=== PATIENT | female | born 1955 | race Caucasian/White ===

== ENCOUNTER 2020-09-22 22:31 | Inpatient (IN) | payer MEDICARE, OTHER ==
[~2020-09-22] VITALS: Ht 165.1 cm; Wt 95.7 kg
[~2020-09-22 22:31] MED LIST: ARIP5TAB10 PO; ASCO500T10 PO; ASPI-869 PO; ATOR10TA PO; BISA10SU61 RC; CARV3.12 PO; CLON0.1T PO; DIVA250T PO; LEVE500T9 PO; LEVO25TA2 PO; LORA-259 PO; MAGN400O6 PO; MULT-594 PO; NA P133E RC; ZINC50TA65 PO
[2020-09-22 22:42] VITALS: BP 114/62
[2020-09-22] MEDS ORDERED: MAGNESIUM HYDROXIDE 30 ML LIQUID UDC PO PRN (22:45)
[2020-09-22] MEDS ORDERED: MAG HYDROX/AL HYDROX/SIMETH 30 ML LIQUID UDC PO PRN (22:45)
[2020-09-22] MEDS ORDERED: BLOOD SUGAR DIAGNOSTIC 1 EACH STRIP VI ONE (22:45)
--- NOTE | 2020-09-23 01:58 | NUR ---
2149 PATIENT ARRIVED ON UNIT. PATIENT ALERT AND ORIENTED TO NAME ONLY. PATIENT DENIES PAIN. VITALS SIGNS STABLE. PATIENT EXTREMELY CONFUSED. PATIENT STATES "JORGE SHEPHERD IS THE PRESIDENT, [facility]. I HAVE A SON BORN IN 1974 SO HE IS NOW 21 YEARS OLD" PATIENT AMBULATORY WITH SOME UNSTEADINESS. PATIENT DENIES SI, HI, AT THIS TIME. PATIENT ADMITS TO "SEEING AND HEARING PEOPLE WHO ARE NOT THERE" PATIENT VERY WEEPY ON ARRIVAL STATING " I'M SO SCARED I WANT TO GO HOME. I DON'T KNOW WHERE I AM" 2399 PATIENT EASILY DIRECTED AND REFOCUSED. PATIENT IN BED AT THIS TIME SLEEPING. WILL CONTINUE TO MONITOR THROUGHOUT SHIFT.
--- NOTE | 2020-09-23 04:31 | NUR ---
PATIENT REFUSED BLOOD SUGAR CHECK. PATIENT UNABLE TO SIGN AND UNDERSTAND. PATIENT VERY CONFUSED. PATIENT IN BED SLEEPING MOST OF NIGHT. NO MEDICATIONS GIVEN AT THIS TIME. WILL CONTINUE TO MONITOR THROUGHOUT SHIFT.
[2020-09-23 07:30] VITALS: BP 115/47
--- NOTE | 2020-09-23 08:00 | NUR ---
Pt alert to name. PT states she wants to continue to sleep and refused breakfast. Reorientation to time and place implemented. Pt States that she hears voices. No sob noted.
--- NOTE | 2020-09-23 08:30 | NUR ---
Firearms Report: Advertising Campaign Manager completed and submitted a DOJ firearms report for 5150 grave disability certification. A copy of report has been placed in patient chart.
--- NOTE | 2020-09-23 09:34 | NUR ---
SW Initial Discharge: Patient currently resides at [facility] located at [address] [place] [address]; ([phone]). Patient does not have any family members at this time. This SW contacted [facility] ([phone]) and spoke with [facility] facility coordinator who stated patient is welcomed back upon discharge. SW will coordinate with patient, treatment team, and MD to coordinate proper discharge.
[2020-09-23] MEDS ORDERED: BISACODYL 10 MG SUPP.RECT RC PRN (10:45)
[2020-09-23] MEDS ORDERED: MAGNESIUM HYDROXIDE 30 ML LIQUID UDC PO PRN (10:45)
[2020-09-23] MEDS ORDERED: CLONIDINE HCL 0.1 MG TABLET PO PRN (10:45)
[2020-09-23] MEDS ORDERED: FLEET ENEMA 133 ML BOTTLE RC PRN (10:45)
[2020-09-23] MEDS: levETIRAcetam 500 MG TABLET PO SCH ×2 (12:32→16:10)
[2020-09-23] MEDS: ATORVASTATIN 10 MG TABLET PO SCH (12:34)
[2020-09-23 15:04] VITALS: BP 107/50
--- NOTE | 2020-09-23 16:04 | NUR ---
SW Contact: This SW received a phone call from patient's SW who is pt's payee ([phone]) who left a voicemail that she follows pt and would want to know her discharge plan.
[2020-09-23] MEDS: CARVEDILOL 3.125 MG TABLET PO SCH (16:10)
[2020-09-23] MEDS ORDERED: CARVEDILOL 3.125 MG TABLET PO SCH (17:00)
--- NOTE | 2020-09-23 18:30 | NUR ---
Pt pacing up and down hallway concerned of when shes going to be discharged. Pt more aware that she is at a mental health hospital. Pt cooperative on taking pills.
[2020-09-23 20:07] VITALS: BP 102/55
[2020-09-23] MEDS: ARIPIPRAZOLE 5 MG TABLET PO SCH (20:23)
[2020-09-23] MEDS: MIRTAZAPINE 15 MG TABLET PO SCH (20:24)
[2020-09-23] MEDS: CLONAZEPAM 0.5 MG TABLET PO PRN (23:06)
--- NOTE | 2020-09-24 06:16 | NUR ---
Patient slept approximately 6.30 hrs.Compliant with medication. Patient noted pacing back and forth the hallway,able to re-direct patient, calm .Denies SI/hI.No aggressive behavior.
[2020-09-24 07:30] VITALS: BP 128/57
[2020-09-24] MEDS: ZINC SULFATE 220 MG CAPSULE PO SCH (08:11)
[2020-09-24] MEDS: levETIRAcetam 500 MG TABLET PO SCH ×2 (08:11→16:10)
[2020-09-24] MEDS: ATORVASTATIN 10 MG TABLET PO SCH (08:12)
[2020-09-24] MEDS: CARVEDILOL 3.125 MG TABLET PO SCH ×2 (08:12→16:12)
[2020-09-24] MEDS: MULTIVITAMINS,THERAPEUTIC TABLET PO SCH (08:12)
[2020-09-24] MEDS: ASCORBIC ACID 500 MG TABLET PO SCH (08:12)
[2020-09-24] MEDS: ARIPIPRAZOLE 5 MG TABLET PO SCH ×2 (08:12→16:10)
[2020-09-24] MEDS: LEVOTHYROXINE SODIUM 25 MCG TABLET PO SCH (08:21)
[2020-09-24] MEDS: ASPIRIN EC 325 MG TABLET.DR PO SCH (08:24)
[2020-09-24] MEDS ORDERED: Medication Not On Formulary EA (Multivitamins (Multivitamin) 1 TAB) PO SCH (09:00)
[2020-09-24] MEDS ORDERED: Medication Not On Formulary EA (Zinc Amino Acid Chelate (Zinc) 50 MG) PO SCH (09:00)
--- NOTE | 2020-09-24 14:37 | NUR ---
patient is alert and oriented x3, compliant with all medication, patient is isolative no interaction with other peers.poor insight and poor judgements.will continue close monitoring.
[2020-09-24 16:03] VITALS: BP 114/56
[2020-09-24] MEDS: CLONAZEPAM 0.5 MG TABLET PO PRN ×2 (16:10→22:20)
[2020-09-24] MEDS: MIRTAZAPINE 15 MG TABLET PO SCH (20:00)
[2020-09-24 20:08] VITALS: BP 122/51
[2020-09-25] MEDS: LEVOTHYROXINE SODIUM 25 MCG TABLET PO SCH (06:11)
--- NOTE | 2020-09-25 06:14 | NUR ---
Slept a total of 6.15 hours. Denies an SOB or discomfort at this time. Pt is compliant with all medications ordered and tolerated all medications well. Paced intermittently down the renner throughout the night and was anxious stating, "They're going to hurt me." Patient was given Klonopin to help relax, tolerated well. Pt able to be redirected. Safety and comfort provided throughout shift. Denies SI or HI. No other issues or concerns at this time, will endorse to day shift.
[2020-09-25 07:30] VITALS: BP 124/46
[2020-09-25] MEDS: levETIRAcetam 500 MG TABLET PO SCH ×2 (08:54→16:20)
[2020-09-25] MEDS: ARIPIPRAZOLE 5 MG TABLET PO SCH ×2 (08:54→16:20)
[2020-09-25] MEDS: ASCORBIC ACID 500 MG TABLET PO SCH (08:54)
[2020-09-25] MEDS: CARVEDILOL 3.125 MG TABLET PO SCH ×2 (08:56→17:40)
[2020-09-25] MEDS: MULTIVITAMINS,THERAPEUTIC TABLET PO SCH (08:56)
[2020-09-25] MEDS: ASPIRIN EC 325 MG TABLET.DR PO SCH (08:56)
[2020-09-25] MEDS: ZINC SULFATE 220 MG CAPSULE PO SCH (08:56)
--- NOTE | 2020-09-25 09:50 | NUR ---
SW Individual Intervention: SW met with patient's today for brief individual counseling to address patient's presenting problem suicidal ideation. Patient presents with depressed mood and flat affect. Patient appears disorganized and confused and asking "why am I here". Patient unable to engage in a meaningful conversation. SW assessed patient's level of suicidality and patient denies suicidal ideation. SW will continue to remain available for patient for continued supportive counseling
[2020-09-25] MEDS: CLONAZEPAM 0.5 MG TABLET PO PRN (12:04)
[2020-09-25 16:00] VITALS: BP 109/56
[2020-09-25 19:55] VITALS: BP 122/45
[2020-09-25] MEDS: TEMAZEPAM 7.5 MG CAPSULE PO PRN (20:49)
[2020-09-25] MEDS: ATORVASTATIN 10 MG TABLET PO SCH (20:49)
[2020-09-25] MEDS: MIRTAZAPINE 15 MG TABLET PO SCH (20:49)
[2020-09-26] MEDS: LEVOTHYROXINE SODIUM 25 MCG TABLET PO SCH (06:07)
--- NOTE | 2020-09-26 06:55 | NUR ---
Patient refused lab works.
[2020-09-26 08:37] VITALS: BP 115/53
[2020-09-26] MEDS: ARIPIPRAZOLE 5 MG TABLET PO SCH ×2 (08:43→16:47)
[2020-09-26] MEDS: MULTIVITAMINS,THERAPEUTIC TABLET PO SCH (08:43)
[2020-09-26] MEDS: ASPIRIN EC 325 MG TABLET.DR PO SCH (08:43)
[2020-09-26] MEDS: ZINC SULFATE 220 MG CAPSULE PO SCH (08:43)
[2020-09-26] MEDS: METFORMIN HCL 500 MG TABLET PO SCH (08:43)
[2020-09-26] MEDS: levETIRAcetam 500 MG TABLET PO SCH ×2 (08:43→16:48)
[2020-09-26] MEDS: CARVEDILOL 3.125 MG TABLET PO SCH ×2 (08:43→16:53)
[2020-09-26] MEDS: ASCORBIC ACID 500 MG TABLET PO SCH (08:44)
[2020-09-26 17:03] VITALS: BP 129/71
--- NOTE | 2020-09-26 17:17 | NUR ---
Gps/Gold Prospector- Anxious, pacing back and forth the hallway, claimed she wants to leave this place, she does not belong here.. Irritability noted when being redirected. Claimed she needed her eye glasses as well as hearing aid.
[2020-09-26] MEDS: CLONAZEPAM 0.5 MG TABLET PO PRN (17:30)
[2020-09-26 20:07] VITALS: BP 118/71
[2020-09-26] MEDS: ATORVASTATIN 10 MG TABLET PO SCH (20:29)
[2020-09-26] MEDS: MIRTAZAPINE 15 MG TABLET PO SCH (20:30)
--- NOTE | 2020-09-27 05:12 | NUR ---
Pt slept well, no s/sx of distress. No complaints of pain during the shift. No change in LOC. Compliant with meds, cooperative with care. Safety precautions in place. Frequent rounds done to ensure safety.
[2020-09-27] MEDS: LEVOTHYROXINE SODIUM 25 MCG TABLET PO SCH (06:35)
[2020-09-27 07:51] VITALS: BP 106/52
[2020-09-27] MEDS: CARVEDILOL 3.125 MG TABLET PO SCH ×2 (08:00→17:15)
[2020-09-27] MEDS: ASCORBIC ACID 500 MG TABLET PO SCH (09:10)
[2020-09-27] MEDS: ZINC SULFATE 220 MG CAPSULE PO SCH (09:10)
[2020-09-27] MEDS: ARIPIPRAZOLE 5 MG TABLET PO SCH ×2 (09:10→16:43)
[2020-09-27] MEDS: MULTIVITAMINS,THERAPEUTIC TABLET PO SCH (09:10)
[2020-09-27] MEDS: METFORMIN HCL 500 MG TABLET PO SCH (09:10)
[2020-09-27] MEDS: ASPIRIN EC 325 MG TABLET.DR PO SCH (09:10)
[2020-09-27] MEDS: levETIRAcetam 500 MG TABLET PO SCH ×2 (09:11→16:43)
--- NOTE | 2020-09-27 13:38 | NUR ---
GPS: Nursing Notes: Severe Agitation: Patient near the nursing station, shouting profanities to the staff, threatening staff, overly disruptive by constantly shouting, redirected, but continue threatening staff, redirected to her room, but continue to be restless, verbal abusive, stating racial statements to staff, "FUCKEN UKRAINIAN..", "I DON'T BELONG HERE..I AM GOING TO KILL YOU..", setting limits, but unable to be redirected, throwing the bedside table at staff, when staff walk away to the nursing station, patient throw a bottle of water toward staff, Dr Hagen paged by charge nurse, continue to monitor for safety, continue with treatment plan.
--- NOTE | 2020-09-27 13:56 | NUR ---
GPS: Nursing Notes: Chemical Restraint: Patient continue with violent outburst without provocation, threatening staff, using profanities toward staff, verbal abusive with racial statements, "FUCKEN EGYPTIAN.. I AM GOING TO GET YOU.. I DON'T BELONG HERE..", "FUCKEN FAT ASSHOLE... I KILL YOU..", throw bottle of water at staff, throw bedside table toward staff, restless, behavior, setting limits, but unable to be redirected, overly disruptive by constantly shouting, Dr. Hagen called and ordered: Zyprexa 10mg IM STAT for severe agitation, R=18, medications IM given at this time, continue to monitor for safety, continue with treatment plan.
[2020-09-27] MEDS ORDERED: OLANZAPINE 10 MG VIAL IM ONE (14:00)
[2020-09-27 16:42] VITALS: BP 125/60
[2020-09-27 19:43] VITALS: BP 150/84
[2020-09-27] MEDS: MIRTAZAPINE 15 MG TABLET PO SCH (20:15)
[2020-09-27] MEDS: ATORVASTATIN 10 MG TABLET PO SCH (20:15)
[2020-09-28] MEDS: LEVOTHYROXINE SODIUM 25 MCG TABLET PO SCH (06:53)
[2020-09-28 07:30] VITALS: BP 115/46
[2020-09-28] MEDS: CARVEDILOL 3.125 MG TABLET PO SCH ×2 (08:00→17:10)
[2020-09-28] MEDS: ASPIRIN EC 325 MG TABLET.DR PO SCH (08:41)
[2020-09-28] MEDS: ZINC SULFATE 220 MG CAPSULE PO SCH (08:41)
[2020-09-28] MEDS: CLONAZEPAM 0.5 MG TABLET PO PRN ×2 (08:42→19:25)
[2020-09-28] MEDS: METFORMIN HCL 500 MG TABLET PO SCH (08:42)
[2020-09-28] MEDS: ARIPIPRAZOLE 5 MG TABLET PO SCH ×2 (08:42→13:02)
[2020-09-28] MEDS: levETIRAcetam 500 MG TABLET PO SCH ×2 (08:42→16:19)
[2020-09-28] MEDS: MULTIVITAMINS,THERAPEUTIC TABLET PO SCH (08:42)
[2020-09-28] MEDS: ASCORBIC ACID 500 MG TABLET PO SCH (08:42)
[2020-09-28 11:24] LABS: BASOPHILS % (AUTO) 0.7 % (0.0-2.0); EOSINOPHILS # (AUTO) 0.1 K/uL (0.0-0.7); EOSINOPHILS % (AUTO) 1.7 % (0.0-7.0); HEMATOCRIT 36.7 % (31.2-41.9); HEMOGLOBIN 12.4 g/dL (10.9-14.3); LYMPHOCYTES # (AUTO) 1.5 K/uL (20.0-40.0); LYMPHOCYTES % (AUTO) 25.2 % (20.5-51.5); MEAN CORPUSCULAR HEMOGLOBIN 32.1 uug (24.7-32.8); MEAN CORPUSCULAR HGB CONC 34 g/dL (32.3-35.6); MEAN CORPUSCULAR VOLUME 94.9 fL (75.5-95.3); MONOCYTES # (AUTO) 0.7 K/uL (2.0-10.0); MONOCYTES % (AUTO) 12.2 % (0.0-11.0); NEUTROPHILS # (AUTO) 3.7 K/uL (1.8-8.9); NEUTROPHILS % (AUTO) 60.2 % (38.5-71.5); PLATELET COUNT (AUTO) 105 K/uL (179-408); RED BLOOD CELL COUNT(AUTO) 3.87 MIL/uL (3.63-4.92); WHITE BLOOD COUNT (AUTO) 6.1 K/uL (3.8-11.8)
[2020-09-28 15:12] VITALS: BP 107/51
[2020-09-28] MEDS: ARIPIPRAZOLE 10 MG TABLET PO SCH (16:19)
[2020-09-28] MEDS ORDERED: OLANZAPINE 10 MG VIAL IM STA (19:50)
[2020-09-28 19:57] VITALS: BP 112/51
[2020-09-28] MEDS: ATORVASTATIN 10 MG TABLET PO SCH (20:15)
--- NOTE | 2020-09-28 21:45 | NUR ---
Chemical Restraint Note: Pt was noted to be anxious pacing up and down the hallways yelling, "why am I here?" Pt was escalating so she was offered prn Klonopin 0.5mg. Pt reluctantly took it with some prompting, but it had no effect. Pt continued to elevate despite redirection efforts attempted from staff. Pt was verbally abusive toward the Charge Nurse and physically postured toward her, threatening "Fuck you, I'll fuck you up!" This principal technical writer attempted to calm the Pt to no avail, as Pt tried to kick and strike at staff. Pt refused to go her her room and remained disruptive and aggressive. Dr Hagen notified of Pt's behavior and Zyprexa 10mg administered to (R) buttock with moderate effect. Pt was cooperative with the injection, hands on Pt only for the IM. Pt remained emotional and upset, but notably calmer until 45 minutes after the injection was given, then she calmed and went to bed. VS before injection were: 112/51, 59, 18, 98% RA. Pt refused VS during the hour after the injection, but allowed staff to take her VS at 2130: 118/56, 59, 18, 99% RA. Pt now observed lying down in bed with her eyes closed, breathing even and unlabored, will continue to monitor.
[2020-09-28 22:01] VITALS: BP 118/56
[2020-09-29] MEDS: LEVOTHYROXINE SODIUM 25 MCG TABLET PO SCH (06:50)
[2020-09-29 07:30] VITALS: BP 115/40
[2020-09-29] MEDS: CARVEDILOL 3.125 MG TABLET PO SCH ×2 (08:00→17:48)
[2020-09-29 08:06] LABS: BILIRUBIN,TOTAL 0.3 mg/dL (0.2-1.0); TOTAL PROTEIN, SERUM 6.3 g/dL (6.4-8.2)
[2020-09-29] MEDS: ASCORBIC ACID 500 MG TABLET PO SCH (08:30)
[2020-09-29] MEDS: ARIPIPRAZOLE 5 MG TABLET PO SCH ×2 (08:31→13:20)
[2020-09-29] MEDS: ASPIRIN EC 325 MG TABLET.DR PO SCH (08:31)
[2020-09-29] MEDS: levETIRAcetam 500 MG TABLET PO SCH ×2 (08:31→17:47)
[2020-09-29] MEDS: MULTIVITAMINS,THERAPEUTIC TABLET PO SCH (08:31)
[2020-09-29] MEDS: ZINC SULFATE 220 MG CAPSULE PO SCH (08:31)
[2020-09-29] MEDS: METFORMIN HCL 500 MG TABLET PO SCH (08:31)
--- NOTE | 2020-09-29 10:23 | NUR ---
Court Hearing: Patient's court hearing for 5250 was today and it was upheld for GD and danger to self.
--- NOTE | 2020-09-29 12:06 | NUR ---
SW Contact: This SW spoke with patient's SW who is pt's payee Sujey from behavioral Health ([phone]) and updated on patient's current status and discharge plan back to [facility] once patient is stable.
[2020-09-29] MEDS: CLONAZEPAM 0.5 MG TABLET PO PRN (13:19)
[2020-09-29 15:15] VITALS: BP 137/77
[2020-09-29] MEDS: ARIPIPRAZOLE 10 MG TABLET PO SCH (17:47)
[2020-09-29 20:06] VITALS: BP 111/69
[2020-09-29] MEDS: ATORVASTATIN 10 MG TABLET PO SCH (20:11)
[2020-09-30] MEDS: LEVOTHYROXINE SODIUM 25 MCG TABLET PO SCH (06:03)
[2020-09-30 07:30] VITALS: BP 104/50
[2020-09-30] MEDS: CARVEDILOL 3.125 MG TABLET PO SCH ×2 (08:00→17:05)
[2020-09-30] MEDS: MULTIVITAMINS,THERAPEUTIC TABLET PO SCH (08:33)
[2020-09-30] MEDS: ASPIRIN EC 325 MG TABLET.DR PO SCH (08:33)
[2020-09-30] MEDS: ZINC SULFATE 220 MG CAPSULE PO SCH (08:33)
[2020-09-30] MEDS: ARIPIPRAZOLE 5 MG TABLET PO SCH ×2 (08:33→12:26)
[2020-09-30] MEDS: ASCORBIC ACID 500 MG TABLET PO SCH (08:33)
[2020-09-30] MEDS: METFORMIN HCL 500 MG TABLET PO SCH (08:33)
[2020-09-30] MEDS: levETIRAcetam 500 MG TABLET PO SCH ×2 (08:33→17:04)
[2020-09-30] MEDS: CLONAZEPAM 0.5 MG TABLET PO PRN (12:26)
[2020-09-30 15:07] VITALS: BP 99/50
[2020-09-30] MEDS: ARIPIPRAZOLE 10 MG TABLET PO SCH (17:04)
[2020-09-30 20:00] VITALS: BP 126/77
[2020-09-30] MEDS: ATORVASTATIN 10 MG TABLET PO SCH (20:02)
[2020-09-30] MEDS: TEMAZEPAM 7.5 MG CAPSULE PO PRN (21:31)
[2020-10-01] MEDS: LEVOTHYROXINE SODIUM 25 MCG TABLET PO SCH (06:11)
[2020-10-01 07:23] LABS: BASOPHILS % (AUTO) 0.5 % (0.0-2.0); EOSINOPHILS # (AUTO) 0.1 K/uL (0.0-0.7); EOSINOPHILS % (AUTO) 1.9 % (0.0-7.0); HEMATOCRIT 42.4 % (31.2-41.9); HEMOGLOBIN 14.2 g/dL (10.9-14.3); LYMPHOCYTES # (AUTO) 3.1 K/uL (20.0-40.0); LYMPHOCYTES % (AUTO) 42.9 % (20.5-51.5); MEAN CORPUSCULAR HEMOGLOBIN 32.1 uug (24.7-32.8); MEAN CORPUSCULAR HGB CONC 34 g/dL (32.3-35.6); MEAN CORPUSCULAR VOLUME 95.7 fL (75.5-95.3); MONOCYTES # (AUTO) 0.6 K/uL (2.0-10.0); MONOCYTES % (AUTO) 8.9 % (0.0-11.0); NEUTROPHILS # (AUTO) 3.3 K/uL (1.8-8.9); NEUTROPHILS % (AUTO) 45.8 % (38.5-71.5); PLATELET COUNT (AUTO) 142 K/uL (179-408); RED BLOOD CELL COUNT(AUTO) 4.43 MIL/uL (3.63-4.92); WHITE BLOOD COUNT (AUTO) 7.1 K/uL (3.8-11.8)
[2020-10-01 07:30] VITALS: BP 102/60
[2020-10-01 07:37] LABS: BILIRUBIN,TOTAL 0.4 mg/dL (0.2-1.0); PHOSPHOROUS 4.2 mg/dL (2.5-4.9); POTASSIUM 4.3 mmol/L (3.5-5.1); TOTAL PROTEIN, SERUM 7.5 g/dL (6.4-8.2)
--- NOTE | 2020-10-01 08:00 | NUR ---
AWAKE ALERT DENIES SI DENIES HEARING VOICES COMPLIANT WITH MEDICATIONS AND CARE PATIENT ENCOURAGED TO GO TO THE ACTIVITY ROOM AND PARTICIPATE ABLE AND SHE EXPRESSED UNDERSTANDING.WILL CONTINUE TO PROVIDE SAFE AND THERAPEUTIC ENVIRONMENT AT ALL TIMES.
[2020-10-01] MEDS: ASCORBIC ACID 500 MG TABLET PO SCH (08:17)
[2020-10-01] MEDS: METFORMIN HCL 500 MG TABLET PO SCH (08:17)
[2020-10-01] MEDS: ASPIRIN EC 325 MG TABLET.DR PO SCH (08:17)
[2020-10-01] MEDS: levETIRAcetam 500 MG TABLET PO SCH ×2 (08:17→16:23)
[2020-10-01] MEDS: ZINC SULFATE 220 MG CAPSULE PO SCH (08:17)
[2020-10-01] MEDS: MULTIVITAMINS,THERAPEUTIC TABLET PO SCH (08:17)
[2020-10-01] MEDS: ARIPIPRAZOLE 5 MG TABLET PO SCH ×2 (08:17→12:16)
[2020-10-01 16:00] VITALS: BP 107/71
[2020-10-01] MEDS: ARIPIPRAZOLE 10 MG TABLET PO SCH (16:23)
--- NOTE | 2020-10-01 18:00 | NUR ---
WALKING UP AND DOWN IN THE HALLWAY ASKED HER IF SHE COULD SIT DOWN TO REST FOR A WHILE STATED NOT TIRED SHE HAS BEEN COMPLIANT WITH MEDICATIONS AND CARE PER REPORT PATIENT MIGHT BE DISCHARGE TOMORROW.
[2020-10-01] MEDS: ATORVASTATIN 10 MG TABLET PO SCH (20:04)
[2020-10-01 20:13] VITALS: BP 121/67
[2020-10-02] MEDS: LEVOTHYROXINE SODIUM 25 MCG TABLET PO SCH (06:01)
[2020-10-02 07:30] VITALS: BP 139/44
[2020-10-02] MEDS: ARIPIPRAZOLE 5 MG TABLET PO SCH ×2 (08:38→12:43)
[2020-10-02] MEDS: MULTIVITAMINS,THERAPEUTIC TABLET PO SCH (08:38)
[2020-10-02] MEDS: ASPIRIN EC 325 MG TABLET.DR PO SCH (08:38)
[2020-10-02] MEDS: levETIRAcetam 500 MG TABLET PO SCH ×2 (08:38→17:23)
[2020-10-02] MEDS: ZINC SULFATE 220 MG CAPSULE PO SCH (08:38)
[2020-10-02] MEDS: ASCORBIC ACID 500 MG TABLET PO SCH (08:38)
[2020-10-02] MEDS: METFORMIN HCL 500 MG TABLET PO SCH (08:38)
[2020-10-02 16:00] VITALS: BP 135/74
[2020-10-02] MEDS: ARIPIPRAZOLE 10 MG TABLET PO SCH (17:23)
[2020-10-02 20:06] VITALS: BP 127/63
[2020-10-02] MEDS ORDERED: ARIPIPRAZOLE 10 MG TABLET PO SCH (21:00)
[2020-10-02] MEDS: ATORVASTATIN 10 MG TABLET PO SCH (21:27)
--- NOTE | 2020-10-03 05:46 | NUR ---
GPS: Patient slept approximately 7.15 hrs.Compliant with medication. Patient resting on bed comfortably,able to re-direct patient, calm .Denies SI/hI.No aggressive behavior.
[2020-10-03] MEDS: LEVOTHYROXINE SODIUM 25 MCG TABLET PO SCH (06:08)
[2020-10-03 07:30] VITALS: BP 111/49
--- NOTE | 2020-10-03 07:58 | NUR ---
Discharge Note: Patient will be discharged to [facility] [address] [place] [address]; (P [phone]; F [phone]) via ambulance at 1PM. Spoke with [facility] print production coordinator who stated they are ready to accept the patient today. Patient does not have any family members to contact. Patient is aware and agreeable with discharge plans and presents with appropriate mood and congruent affect. Patient is alert and oriented x2, is unable to plan for self-care, however, is willing to received care provided for her at [facility]. Patient denies any suicidal or homicidal ideation. Patient will follow-up at the facility with (Psychiatrist) Dr. Trinidad and (Survey Rodman) Dr. Franks.
[2020-10-03] MEDS: MULTIVITAMINS,THERAPEUTIC TABLET PO SCH (08:47)
[2020-10-03] MEDS: ASCORBIC ACID 500 MG TABLET PO SCH (08:47)
[2020-10-03] MEDS: ZINC SULFATE 220 MG CAPSULE PO SCH (08:47)
[2020-10-03] MEDS: METFORMIN HCL 500 MG TABLET PO SCH (08:47)
[2020-10-03] MEDS: levETIRAcetam 500 MG TABLET PO SCH (08:47)
[2020-10-03] MEDS: ASPIRIN EC 325 MG TABLET.DR PO SCH (08:47)
[2020-10-03] MEDS ORDERED: ARIPIPRAZOLE 10 MG TABLET PO SCH (09:00)
--- NOTE | 2020-10-03 11:59 | NUR ---
Gps/Forest Management Professor- Called [facility]. Facility, , report was given to Nurse Travel Ot Bonita . Informed of nut picker time from the Hospital. patient was well informed.
--- NOTE | 2020-10-03 14:25 | NUR ---
Gps/Technical Lead- Discharged to [facility] via ambulance, all belongings given back to patient. In good spirit , no new complaints noted.
== END 2020-10-03 14:45 | DRG 885 ==
LOC: GPS 22:31
PROVIDERS: ADMIT Psychiatry & Neurology Psychiatry; ATTEND Internal Medicine
DX: F25.9 Schizoaffective disorder, unspecified (principal); N17.0 Acute kidney failure with tubular necrosis; N18.9 Chronic kidney disease, unspecified; D68.59 Other primary thrombophilia; E87.0 Hyperosmolality and hypernatremia; G40.909 Epilepsy, unspecified, not intractable, without status epilepticus; E03.9 Hypothyroidism, unspecified; E78.5 Hyperlipidemia, unspecified; G30.9 Alzheimer's disease, unspecified; F02.80 Dementia in other diseases classified elsewhere, unspecified severity, without behavioral disturbance, psychotic disturbance, mood disturbance, and anxiety; D69.6 Thrombocytopenia, unspecified; E66.01 Morbid (severe) obesity due to excess calories; F29 Unspecified psychosis not due to a substance or known physiological condition; Z68.35 Body mass index [BMI] 35.0-35.9, adult; Z20.822 Contact with and (suspected) exposure to COVID-19; F19.90 Other psychoactive substance use, unspecified, uncomplicated; Z74.09 Other reduced mobility; J44.9 Chronic obstructive pulmonary disease, unspecified; I25.2 Old myocardial infarction; E11.22 Type 2 diabetes mellitus with diabetic chronic kidney disease; I12.9 Hypertensive chronic kidney disease with stage 1 through stage 4 chronic kidney disease, or unspecified chronic kidney disease; Z88.2 Allergy status to sulfonamides
CPT/HCPCS: 36415; 71045; 83735; 84100; 85025; J2358

== ENCOUNTER 2021-03-14 14:44 | Inpatient (IN) | payer MEDICARE, OTHER ==
[~2021-03-14] VITALS: Ht 162.6 cm; Wt 77.1 kg
[~2021-03-14 14:44] MED LIST changes: -ARIP5TAB10 PO; -DIVA250T PO; -LORA-259 PO
[2021-03-14 15:22] LABS: HEMATOCRIT 35.3 % (31.2-41.9); MEAN CORPUSCULAR HEMOGLOBIN 31.5 uug (24.7-32.8); MEAN CORPUSCULAR VOLUME 95.8 fL (75.5-95.3); PLATELET COUNT (AUTO) 171 K/uL (179-408)
[2021-03-14 15:29] LABS: CARBON DIOXIDE 31 mmol/L (21-32); CHLORIDE 106 mmol/L (98-107); CREATININE 1.2 mg/dL (0.6-1.3); GLUCOSE 122 mg/dL (74-106); UREA NITROGEN, BLOOD 25 mg/dL (7-18)
[2021-03-14 15:37] LABS: ETHANOL < 3 MG/DL (0-0)
[2021-03-14 15:41] LABS: ALANINE AMINOTRANSFERASE 17 U/L (14-59); ALKALINE PHOSPHATASE 97 U/L (50-136); ASPARTATE AMINOTRANSFERASE 16 U/L (15-37); BILIRUBIN,DIRECT 0.1 mg/dL (0.0-0.2); BILIRUBIN,TOTAL 0.2 mg/dL (0.2-1.0); PHENYTOIN (DILANTIN) 6.6 ug/mL (10.0-20.0); TOTAL PROTEIN, SERUM 6.6 g/dL (6.4-8.2)
[2021-03-14 15:43] LABS: ACETAMINOPHEN < 2.0 ug/mL (10-30)
[2021-03-14] MEDS ORDERED: PHEN100C4 PO (16:02)
[2021-03-14] MEDS ORDERED: LAMO200T10 PO (16:02)
[2021-03-14] MEDS ORDERED: MAGN400O6 PO (16:02)
[2021-03-14] MEDS ORDERED: OLAN10TA73 PO (16:02)
[2021-03-14] MEDS ORDERED: DIVA-78 PO (16:02)
[2021-03-14] MEDS ORDERED: LEVO25TA9 PO (16:02)
[2021-03-14] MEDS ORDERED: METF-494 PO (16:02)
[2021-03-14] MEDS ORDERED: CLOT15CR27 TP (16:02)
[2021-03-14] MEDS ORDERED: HYDR2TAB4 PO (16:02)
[2021-03-14] MEDS ORDERED: TRAZ-257 PO (16:02)
[2021-03-14] MEDS ORDERED: DIPH25CA83 PO (16:02)
[2021-03-14] MEDS ORDERED: LISI-782 PO (16:02)
[2021-03-14] MEDS ORDERED: TOPI100T38 PO (16:02)
[2021-03-14] MEDS ORDERED: ATOR10TA PO (16:02)
[2021-03-14] MEDS ORDERED: IBUP-1955 PO (16:02)
--- NOTE | 2021-03-14 16:10 | NUR ---
Pt medically cleared, per provider. Spoke with Sarah, crisis team, will be coming in for evaluation.
--- NOTE | 2021-03-14 16:41 | NUR ---
Pt is sleeping in stable condition.
--- NOTE | 2021-03-14 17:52 | NUR ---
Report called into [facility], spoke to Esvin. Will transport pt via wheel chair to room 140A
[2021-03-14] MEDS ORDERED: MAGNESIUM HYDROXIDE 30 ML LIQUID UDC PO PRN ×2 (18:15→18:30)
[2021-03-14] MEDS ORDERED: MAG HYDROX/AL HYDROX/SIMETH 30 ML LIQUID UDC PO PRN (18:15)
[2021-03-14 18:27] LABS: VALPROIC ACID 44 ug/mL (50-100)
[2021-03-14] MEDS ORDERED: CLONIDINE HCL 0.1 MG TABLET PO PRN (18:30)
[2021-03-14] MEDS ORDERED: HYDROMORPHONE HCL 2 MG TABLET PO PRN (18:30)
[2021-03-14] MEDS ORDERED: diphenhydrAMINE 25 MG CAP PO PRN (18:30)
[2021-03-14 18:31] VITALS: BP 158/69
[2021-03-14] MEDS ORDERED: BLOOD SUGAR DIAGNOSTIC 1 EACH STRIP VI ONE (19:30)
[2021-03-14 20:00] VITALS: BP 135/73
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
[2021-03-14] MEDS ORDERED: TRAZODONE 100 MG TABLET PO SCH (21:00)
--- NOTE | 2021-03-14 21:00 | NUR ---
PATIENT C/O ITCHINESS ON HER LEFT ABDOMEN AND LEFT HIP. BENADRYL 25 MG PO PRN WAS GIVEN. WILL CONTINUE TO MONITOR.
[2021-03-14] MEDS ORDERED: PHENYTOIN SODIUM EXTENDED 100 MG CAPSULE.SA PO ONE (21:18)
[2021-03-14] MEDS: PHENYTOIN SODIUM EXTENDED 100 MG CAPSULE.SA PO SCH (21:34)
[2021-03-14] MEDS: ATORVASTATIN 10 MG TABLET PO SCH (21:35)
[2021-03-14] MEDS: LORAZEPAM 0.5 MG TABLET PO PRN (22:03)
[2021-03-14] MEDS: TEMAZEPAM 7.5 MG CAPSULE PO PRN (23:05)
--- NOTE | 2021-03-15 00:30 | NUR ---
PATIENT CONTINUE C/O ITCHY RASH. PATIENT WAS GIVEN ATIVAN 0.5MG AT 2200 AND TEMAZEPAM 7.5MG AT [address] YUAN WAS NOTIFY AND NEW ORDER OBTAINED TO ADMINISTER BENADRYL 50MG [id number] PO PRN ITCHINESS WITH THE FIRST DOSE STARTING "NOW". ORDER NOTED AND CARRIED OUT. WILL CONTINUE TO MONITOR. WILL CONTINUE TO MONITOR.
--- NOTE | 2021-03-15 00:50 | NUR ---
PATIENT NOTED SLEEPING COMFORTABLE IN HER ROOM UN BED. WILL CONTINUE TO MONITOR.
[2021-03-15] MEDS ORDERED: diphenhydrAMINE 25 MG CAP PO PRN (02:30)
[2021-03-15] MEDS: LEVOTHYROXINE SODIUM 25 MCG TABLET PO SCH (06:55)
[2021-03-15 07:33] LABS: HEMATOCRIT 35.7 % (31.2-41.9); MEAN CORPUSCULAR HEMOGLOBIN 31.8 uug (24.7-32.8); MEAN CORPUSCULAR VOLUME 96.2 fL (75.5-95.3); PLATELET COUNT (AUTO) 177 K/uL (179-408)
[2021-03-15 07:39] VITALS: BP 120/48
[2021-03-15] MEDS: LAMOTRIGINE 200 MG TABLET PO SCH (08:22)
[2021-03-15] MEDS: METFORMIN HCL 500 MG TABLET PO SCH (08:22)
[2021-03-15] MEDS: ASPIRIN EC 325 MG TABLET.DR PO SCH (08:22)
[2021-03-15] MEDS: LISINOPRIL 5 MG TABLET PO SCH (08:23)
[2021-03-15] MEDS: DIVALPROEX 500 MG TABLET.DR PO SCH ×2 (08:23→16:31)
[2021-03-15] MEDS: PHENYTOIN SODIUM EXTENDED 100 MG CAPSULE.SA PO SCH ×2 (08:23→20:58)
[2021-03-15] MEDS: TOPIRAMATE 100 MG TABLET PO SCH (08:23)
[2021-03-15] MEDS: MULTIVITAMINS,THERAPEUTIC TABLET PO SCH (08:23)
[2021-03-15 08:35] LABS: BILIRUBIN,TOTAL 0.2 mg/dL (0.2-1.0); MAGNESIUM 1.8 mg/dL (1.8-2.4); PHOSPHOROUS 3.6 mg/dL (2.5-4.9); POTASSIUM 3.8 mmol/L (3.5-5.1); TOTAL PROTEIN, SERUM 6.2 g/dL (6.4-8.2)
[2021-03-15] MEDS ORDERED: OLANZAPINE 10 MG PO SCH ×3 (09:00)
[2021-03-15 09:10] LABS: THYROID STIMULATING HORMONE 4.527 mIU/mL (0.358-3.740)
[2021-03-15] MEDS: CLOTRIMAZOLE 1% CREAM 30 GM TUBE TP SCH ×2 (11:40→20:58)
[2021-03-15] MEDS: diphenhydrAMINE 50 MG CAPSULE PO PRN (14:48)
--- NOTE | 2021-03-15 14:52 | NUR ---
GPS: Nursing Notes: Destructive Behavior to Self: Patient is awake and responding to his name, impaired judgment, labile, unpredictable behavior, denies SI/HI, resistant with nursing care, loud and angry affect, gets easily irritable when redirected, shouting to staff "I live on the streets... I lost my hearing aids..", explained to [facility], but shouting to staff "I live on the streets...", unable to formulate a viable plan for self care, continue to monitor for safety, AWOL risk, stating that she wants to leave the unit, continue with treatment plan.
[2021-03-15 16:00] VITALS: BP 110/57
[2021-03-15 20:11] VITALS: BP 112/51
[2021-03-15] MEDS: ATORVASTATIN 10 MG TABLET PO SCH (20:58)
[2021-03-15] MEDS ORDERED: TRAZODONE 50 MG TABLET PO SCH (21:00)
[2021-03-15] MEDS: TRAZODONE 50 MG TABLET PO SCH (21:03)
[2021-03-15] MEDS: OLANZAPINE 5 MG TABLET PO SCH (21:44)
[2021-03-15] MEDS: TEMAZEPAM 7.5 MG CAPSULE PO PRN (22:56)
[2021-03-16] MEDS: LORAZEPAM 0.5 MG TABLET PO PRN ×2 (00:27→19:49)
[2021-03-16] MEDS: diphenhydrAMINE 50 MG CAPSULE PO PRN ×2 (00:27→21:46)
--- NOTE | 2021-03-16 00:58 | NUR ---
GPS: Pt.remains awake,anxious,disorganized,confused and forgetful. Frequently at nurses station with multiple complaints. Poor insight to present situation. Impaired judgement. Easily irritable when being re-directed by staff. Re-assured frequently due to her confusion. All prn meds.for anxiety,insomnia and itching given with little effect as of now. Safety emphasized. Will continue to monitor.
[2021-03-16] MEDS: LEVOTHYROXINE SODIUM 25 MCG TABLET PO SCH (06:13)
[2021-03-16 08:00] VITALS: BP 114/50
[2021-03-16] MEDS: METFORMIN HCL 500 MG TABLET PO SCH ×2 (08:00→16:44)
[2021-03-16] MEDS: TOPIRAMATE 100 MG TABLET PO SCH (09:00)
[2021-03-16] MEDS: LAMOTRIGINE 200 MG TABLET PO SCH (09:00)
[2021-03-16] MEDS: ASPIRIN EC 325 MG TABLET.DR PO SCH (09:00)
[2021-03-16] MEDS: OLANZAPINE 5 MG TABLET PO SCH ×3 (09:00→20:05)
[2021-03-16] MEDS: LISINOPRIL 5 MG TABLET PO SCH (09:00)
[2021-03-16] MEDS: PHENYTOIN SODIUM EXTENDED 100 MG CAPSULE.SA PO SCH ×3 (09:00→20:05)
[2021-03-16] MEDS: DIVALPROEX 500 MG TABLET.DR PO SCH ×2 (09:00→16:43)
[2021-03-16] MEDS: CLOTRIMAZOLE 1% CREAM 30 GM TUBE TP SCH ×2 (09:00→16:43)
[2021-03-16] MEDS: MULTIVITAMINS,THERAPEUTIC TABLET PO SCH ×2 (09:00→16:44)
--- NOTE | 2021-03-16 13:16 | NUR ---
GPS: Nursing Notes: Destructive Behavior to Self: Patient is awake and responding to her name, loud and pressured speech, paranoid behavior, refusing her medications, shouting at staff "THESE PILLS ARE NOT MY FUCKEN MEDICATIONS... THEY NOT MY MEDICATIONS...", redirected and reoriented during shift, but patient is resistant with nursing care, believes that she lost her hearing aids on the street, gets easily irritable when redirected, poor anger management, unable to formulate a viable plan for self care, continue to monitor for safety, continue with treatment plan.
--- NOTE | 2021-03-16 15:29 | NUR ---
Firearms Report: Car Sweeper completed and submitted a DOJ firearms report for 5150 danger to self certifications. A copy of report has been placed in patient chart.
[2021-03-16 15:59] VITALS: BP 107/43
--- NOTE | 2021-03-16 15:59 | NUR ---
MATTHEW Initial Discharge Note Pt currently resides at [facility] located at [address] [place] [address] ([phone]). Pt does not have any family support at this time. MATTHEW contacted [facility] ([phone]) and spoke with Mona, admissions manager, who stated she will follow-up with weatherization administrator to see if pt is welcome back upon discharge. MATTHEW contacted [facility] and spoke with SHIRLENE Gerard, who stated pt's psychiatrist, Dr. Trinidad, advised for pt to be transferred to a locked facility. MATTHEW will coordinate with patient, treatment team, and MD to coordinate a safe and proper discharge.
--- NOTE | 2021-03-16 16:00 | NUR ---
SW Facility Contact SW contacted [facility] ([phone]) and spoke with Mona, clinic office coordinator, who stated she will follow-up with dispatcher service chief to see if pt is welcome back upon discharge. MATTHEW also spoke with SHIRLENE Gerard, who stated pt's psychiatrist, Dr. Trinidad, advised for pt to be transferred to a locked facility.
[2021-03-16 19:59] VITALS: BP 112/52
[2021-03-16] MEDS: TRAZODONE 50 MG TABLET PO SCH (20:04)
[2021-03-16] MEDS: ATORVASTATIN 10 MG TABLET PO SCH (20:05)
[2021-03-16] MEDS: TEMAZEPAM 7.5 MG CAPSULE PO PRN (21:47)
[2021-03-17] MEDS: LEVOTHYROXINE SODIUM 25 MCG TABLET PO SCH (06:01)
--- NOTE | 2021-03-17 07:58 | NUR ---
SW Note SW met with pt and discussed treatment and discharge plan. Pt presented as alert and oriented x3. Pt appeared to be withdrawn and depressed. Pt presented as guarded. Pt was unable to state the reason for her hospital and asked "why am I here?" Pt reports feeling depressed since her in 1972 and her children were taken away. Pt reports history of past suicide attempt when her . Pt reports she continues to feel depressed. Pt denies suicidal ideation or homicidal ideation at this time. Pt's insight and judgment appear to be impaired.
[2021-03-17 08:00] VITALS: BP 155/69
[2021-03-17] MEDS: PHENYTOIN SODIUM EXTENDED 100 MG CAPSULE.SA PO SCH ×2 (09:00→21:39)
[2021-03-17] MEDS: DIVALPROEX 500 MG TABLET.DR PO SCH ×2 (10:12→17:34)
[2021-03-17] MEDS: METFORMIN HCL 500 MG TABLET PO SCH (10:12)
[2021-03-17] MEDS: OLANZAPINE 5 MG TABLET PO SCH ×2 (10:13→21:40)
[2021-03-17] MEDS: MULTIVITAMINS,THERAPEUTIC TABLET PO SCH (10:13)
[2021-03-17] MEDS: CLOTRIMAZOLE 1% CREAM 30 GM TUBE TP SCH ×2 (10:13→17:34)
[2021-03-17] MEDS: TOPIRAMATE 100 MG TABLET PO SCH (10:13)
[2021-03-17] MEDS: LAMOTRIGINE 200 MG TABLET PO SCH (10:14)
[2021-03-17] MEDS: LISINOPRIL 5 MG TABLET PO SCH (10:14)
[2021-03-17] MEDS: ASPIRIN EC 81 MG TABLET.DR PO SCH (10:19)
--- NOTE | 2021-03-17 12:00 | NUR ---
WOUND CARE CONSULT: REVIEWED CHART, NURSING DOCUMENTATION AND PHOTOS WHICH INDICATE RASH/SKIN CONDITION TO ABDOMEN AND LOWER EXTREMITIES, PRESENT ON ADMISSION, UNKNOWN ETIOLOLGY. DEFER TO PMD FOR SKIN CONDITION. WILL SEE PRN.
[2021-03-17 16:05] VITALS: BP 144/73
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
--- NOTE | 2021-03-17 20:09 | NUR ---
GPS: DR ENGLAND VISITED PT AND PER DR ENGLAND, TO TRANSFER THE SERVICE TO HIM. INFORMED BHAVYA, THE INTAKE, AND MADE AWARE. NO ONE ANSWERED AT ADMITTING OFFICE
[2021-03-17] MEDS: TRAZODONE 50 MG TABLET PO SCH (21:39)
[2021-03-17] MEDS: DIVALPROEX 125 MG TABLET.DR PO SCH (21:40)
[2021-03-17] MEDS: ATORVASTATIN 10 MG TABLET PO SCH (21:40)
[2021-03-17] MEDS: TEMAZEPAM 7.5 MG CAPSULE PO PRN (22:42)
[2021-03-17] MEDS: LORAZEPAM 0.5 MG TABLET PO PRN (23:54)
[2021-03-18] MEDS: diphenhydrAMINE 50 MG CAPSULE PO PRN ×2 (02:41→20:35)
[2021-03-18] MEDS: LEVOTHYROXINE SODIUM 25 MCG TABLET PO SCH (06:35)
[2021-03-18 07:30] VITALS: BP 92/46
[2021-03-18] MEDS: OLANZAPINE 5 MG TABLET PO SCH ×2 (08:37→21:46)
[2021-03-18] MEDS: TOPIRAMATE 100 MG TABLET PO SCH (08:37)
[2021-03-18] MEDS: DIVALPROEX 500 MG TABLET.DR PO SCH ×2 (08:37→16:58)
[2021-03-18] MEDS: DIVALPROEX 125 MG TABLET.DR PO SCH (08:37)
[2021-03-18] MEDS: METFORMIN HCL 500 MG TABLET PO SCH (08:37)
[2021-03-18] MEDS: ASPIRIN EC 81 MG TABLET.DR PO SCH (08:37)
[2021-03-18] MEDS: MULTIVITAMINS,THERAPEUTIC TABLET PO SCH (08:37)
[2021-03-18] MEDS: LISINOPRIL 5 MG TABLET PO SCH (08:38)
[2021-03-18] MEDS: LAMOTRIGINE 200 MG TABLET PO SCH (08:39)
[2021-03-18] MEDS: PHENYTOIN SODIUM EXTENDED 100 MG CAPSULE.SA PO SCH ×2 (08:39→21:46)
[2021-03-18] MEDS: CLOTRIMAZOLE 1% CREAM 30 GM TUBE TP SCH ×2 (08:39→17:00)
[2021-03-18 16:00] VITALS: BP 105/66
--- NOTE | 2021-03-18 16:38 | NUR ---
MATTHEW SNF Referral MATTHEW faxed patient's referral packet to [facility] [address] [place] [address] (phone: [phone]; fax: [phone]) for review per MD request.
[2021-03-18] MEDS: LORAZEPAM 0.5 MG TABLET PO PRN (16:58)
--- NOTE | 2021-03-18 17:47 | NUR ---
GPS: PT SEEN BY DR ENGLAND TODAY. PT ALERT AND ORIENTED X2 BUT WITH EPISODE OF CONFUSION AND FORGETFUL. PT STATE" WHY AM I HERE? I DON'T BELONG HERE." PT COMES BACK AND FORTH TO THE NURSES STATION AND ALWAYS ASK THE SAME QUESTION. RE-ORIENTED PT WHERE SHE'S AT AND PT FORGETS IT. REDIRECTION NEEDED AT ALL TIMES. PT STILL FEELS DEPRESS AND ANXIOUS. GIVEN ATIVAN AND TOLERATED WELL. NO SUICIDAL IDEATION NOTED AT THIS TIME.
[2021-03-18 20:19] VITALS: BP 112/50
[2021-03-18] MEDS: ATORVASTATIN 10 MG TABLET PO SCH (21:46)
[2021-03-18] MEDS: TRAZODONE 50 MG TABLET PO SCH (21:47)
--- NOTE | 2021-03-19 01:51 | NUR ---
Pt is restless, intrusive at nurses station, difficult to be redirected. PRN benadryl given for itching, with minimal effects. Restoril given for insomnia, but she remains awake, coming to nurses station frequently, demanding to be released, asking multiple times why she is in the hospital. Poor memory recall. Needs frequent redirection and reality orientation.
[2021-03-19] MEDS: LEVOTHYROXINE SODIUM 25 MCG TABLET PO SCH (06:43)
[2021-03-19 07:30] VITALS: BP 111/56
[2021-03-19] MEDS: MULTIVITAMINS,THERAPEUTIC TABLET PO SCH (08:32)
[2021-03-19] MEDS: ASPIRIN EC 81 MG TABLET.DR PO SCH (08:32)
[2021-03-19] MEDS: METFORMIN HCL 500 MG TABLET PO SCH (08:32)
[2021-03-19] MEDS: TOPIRAMATE 100 MG TABLET PO SCH (08:33)
[2021-03-19] MEDS: PHENYTOIN SODIUM EXTENDED 100 MG CAPSULE.SA PO SCH ×2 (08:33→21:09)
[2021-03-19] MEDS: LISINOPRIL 5 MG TABLET PO SCH (08:33)
[2021-03-19] MEDS: OLANZAPINE 5 MG TABLET PO SCH ×2 (08:33→22:00)
[2021-03-19] MEDS: DIVALPROEX 500 MG TABLET.DR PO SCH (08:33)
[2021-03-19] MEDS: CLOTRIMAZOLE 1% CREAM 30 GM TUBE TP SCH ×2 (08:34→18:57)
[2021-03-19] MEDS: LAMOTRIGINE 200 MG TABLET PO SCH (08:34)
--- NOTE | 2021-03-19 11:12 | NUR ---
GPS: SEEN PT TODAY PACING THE HALLWAY AND PT SCREAMED AT OTHER PT SAYING "GET THE FUCK OUT OF HERE". PT STATING " I WANNA GO HOME" WILL OFFER MEDICATION TO CALM HER AGITATION,
[2021-03-19] MEDS: LORAZEPAM 0.5 MG TABLET PO PRN ×3 (11:20→21:09)
--- NOTE | 2021-03-19 11:29 | NUR ---
GPS: PT TOLERATED WELL ATIVAN 0.5MG ASSURE PT THAT DR ENGLAND WILL SPEAK WITH HER. WILL MONITOR FOR PT.
[2021-03-19] MEDS: DIVALPROEX 125 MG TABLET.DR PO SCH ×2 (13:15→22:01)
--- NOTE | 2021-03-19 14:57 | NUR ---
SW Discharge Plan Update MATTHEW called and spoke with Christine ([phone]), market research coordinator at [facility] located at [address] [place] [phone] ([phone]) to follow-up on referral. Per request, MATTHEW re-faxed patient's referral packet to [facility] located at [address] [place] [address] (phone: [phone]; fax: [phone]) attention to Christine for review.
[2021-03-19 16:57] VITALS: BP 103/60
[2021-03-19 20:13] VITALS: BP 114/50
--- NOTE | 2021-03-19 20:24 | NUR ---
GPS: PT PACING HALLWAY AND ATTENTION SEEKING. PT ANXIOUS AND AGITATEDSTATING " I WANNA GO HOME" PT GIVEN ATIVAN AT AROUNG 1800, TOLERATED WELL BY PT.
[2021-03-19] MEDS: ATORVASTATIN 10 MG TABLET PO SCH (21:10)
[2021-03-19] MEDS: TRAZODONE 50 MG TABLET PO SCH (22:01)
[2021-03-19] MEDS: TEMAZEPAM 7.5 MG CAPSULE PO PRN (22:59)
[2021-03-20] MEDS: diphenhydrAMINE 50 MG CAPSULE PO PRN (00:07)
[2021-03-20] MEDS: LORAZEPAM 0.5 MG TABLET PO PRN (04:34)
--- NOTE | 2021-03-20 05:28 | NUR ---
More directable, this evening. Slept several hours in bed. PRN ativan given x 2, restoril also given. Is now awake, and is being assisted with A shower. No distress noted,
[2021-03-20] MEDS: LEVOTHYROXINE SODIUM 25 MCG TABLET PO SCH (06:43)
[2021-03-20 07:30] VITALS: BP 106/67
--- NOTE | 2021-03-20 10:46 | NUR ---
MATTHEW Discharge Plan Update MATTHEW spoke with Christine, patient safety coordinator at [facility] [address] [place] [address] ([phone]) who informed facility cannot accept pt due to pt's acuity level is high for the facility. MATTHEW faxed patient's referral packet to [facility] [address] [place] [address] ( ) attention to Karime for review.
[2021-03-20] MEDS: LISINOPRIL 5 MG TABLET PO SCH (11:17)
[2021-03-20] MEDS: LAMOTRIGINE 200 MG TABLET PO SCH (11:18)
[2021-03-20] MEDS: MULTIVITAMINS,THERAPEUTIC TABLET PO SCH (11:19)
[2021-03-20] MEDS: PHENYTOIN SODIUM EXTENDED 100 MG CAPSULE.SA PO SCH ×2 (11:19→21:41)
[2021-03-20] MEDS: OLANZAPINE 5 MG TABLET PO SCH ×2 (11:20→21:35)
[2021-03-20] MEDS: CLOTRIMAZOLE 1% CREAM 30 GM TUBE TP SCH ×2 (11:21→16:11)
[2021-03-20] MEDS: ASPIRIN EC 81 MG TABLET.DR PO SCH (11:22)
[2021-03-20] MEDS: METFORMIN HCL 500 MG TABLET PO SCH (11:22)
[2021-03-20] MEDS: DIVALPROEX 125 MG TABLET.DR PO SCH ×3 (11:22→21:55)
[2021-03-20] MEDS: TOPIRAMATE 100 MG TABLET PO SCH (11:25)
--- NOTE | 2021-03-20 14:32 | NUR ---
MATTHEW Hearing Patient had 5250 probable cause hearing today and it was upheld for grave disability.
[2021-03-20 16:26] VITALS: BP 130/55
[2021-03-20 20:37] VITALS: BP 113/67
[2021-03-20] MEDS: TRAZODONE 50 MG TABLET PO SCH (21:35)
[2021-03-20] MEDS: ATORVASTATIN 10 MG TABLET PO SCH (21:35)
[2021-03-20] MEDS ORDERED: DIVALPROEX 125 MG TABLET.DR PO ONE (21:57)
[2021-03-21] MEDS: LORAZEPAM 0.5 MG TABLET PO PRN ×2 (01:28→23:29)
[2021-03-21] MEDS: diphenhydrAMINE 50 MG CAPSULE PO PRN (01:54)
[2021-03-21] MEDS: TEMAZEPAM 7.5 MG CAPSULE PO PRN (01:55)
[2021-03-21] MEDS: LEVOTHYROXINE SODIUM 25 MCG TABLET PO SCH (07:00)
[2021-03-21 07:30] VITALS: BP 106/47
[2021-03-21] MEDS: MULTIVITAMINS,THERAPEUTIC TABLET PO SCH (09:00)
[2021-03-21] MEDS: LISINOPRIL 5 MG TABLET PO SCH (09:00)
[2021-03-21] MEDS: PHENYTOIN SODIUM EXTENDED 100 MG CAPSULE.SA PO SCH ×2 (09:17→20:53)
[2021-03-21] MEDS: ASPIRIN EC 81 MG TABLET.DR PO SCH (09:17)
[2021-03-21] MEDS: LAMOTRIGINE 200 MG TABLET PO SCH (09:17)
[2021-03-21] MEDS: CLOTRIMAZOLE 1% CREAM 30 GM TUBE TP SCH ×2 (09:19→16:52)
[2021-03-21] MEDS: OLANZAPINE 5 MG TABLET PO SCH ×2 (09:22→20:53)
[2021-03-21] MEDS: TOPIRAMATE 100 MG TABLET PO SCH (09:22)
[2021-03-21] MEDS: METFORMIN HCL 500 MG TABLET PO SCH (09:24)
[2021-03-21] MEDS: DIVALPROEX 125 MG TABLET.DR PO SCH ×3 (10:41→20:54)
[2021-03-21 16:00] VITALS: BP 113/41
--- NOTE | 2021-03-21 19:24 | NUR ---
patient started pacing after lunch in the hallway back and forth, difficult to redirect, some effectiveness only, still pacing in the hallway, endorsed to next shift
[2021-03-21 20:00] VITALS: BP 142/68
[2021-03-21] MEDS: ATORVASTATIN 10 MG TABLET PO SCH (20:53)
[2021-03-21] MEDS: TRAZODONE 50 MG TABLET PO SCH (20:54)
[2021-03-22] MEDS: diphenhydrAMINE 50 MG CAPSULE PO PRN ×2 (00:56→22:00)
[2021-03-22] MEDS: LEVOTHYROXINE SODIUM 25 MCG TABLET PO SCH (06:50)
[2021-03-22 08:27] VITALS: BP 116/59
[2021-03-22] MEDS: LAMOTRIGINE 200 MG TABLET PO SCH (08:32)
[2021-03-22] MEDS: PHENYTOIN SODIUM EXTENDED 100 MG CAPSULE.SA PO SCH ×2 (08:33→22:43)
[2021-03-22] MEDS: LISINOPRIL 5 MG TABLET PO SCH (08:33)
[2021-03-22] MEDS: OLANZAPINE 5 MG TABLET PO SCH (08:34)
[2021-03-22] MEDS: METFORMIN HCL 500 MG TABLET PO SCH (08:35)
[2021-03-22] MEDS: TOPIRAMATE 100 MG TABLET PO SCH (08:35)
[2021-03-22] MEDS: DIVALPROEX 125 MG TABLET.DR PO SCH ×3 (08:35→22:42)
[2021-03-22] MEDS: ASPIRIN EC 81 MG TABLET.DR PO SCH (08:35)
[2021-03-22] MEDS: MULTIVITAMINS,THERAPEUTIC TABLET PO SCH (08:35)
[2021-03-22] MEDS: CLOTRIMAZOLE 1% CREAM 30 GM TUBE TP SCH ×2 (08:48→17:00)
--- NOTE | 2021-03-22 15:39 | NUR ---
Pt. is received awake in her room. A/O X 2 to person, place. Pt. affect is irritable, anxious, restless. Pt. keeps saying " I don't belong here". Compliant with medications at 09:00, refused at 13:00. Pt. ambulates without assistance. Pt. presents redness in lower and upper extremities, abdominal folds, Clotrimazole 30 GM cream applied as scheduled, will be monitored for effectiveness. Active listening provided. Fall and safety precautions implemented.
[2021-03-22 16:05] VITALS: BP 114/49
[2021-03-22 20:36] VITALS: BP 112/54
[2021-03-22] MEDS: ATORVASTATIN 10 MG TABLET PO SCH ×2 (21:00→23:14)
[2021-03-22] MEDS ORDERED: OLANZAPINE ZYDIS 5 MG TAB.RAPDIS PO SCH (21:00)
[2021-03-22] MEDS: TRAZODONE 50 MG TABLET PO SCH (22:44)
[2021-03-23] MEDS: LEVOTHYROXINE SODIUM 25 MCG TABLET PO SCH (07:00)
[2021-03-23 07:41] VITALS: BP 122/78
[2021-03-23] MEDS: LISINOPRIL 5 MG TABLET PO SCH (09:00)
[2021-03-23] MEDS: CLOTRIMAZOLE 1% CREAM 30 GM TUBE TP SCH ×2 (09:00→17:00)
[2021-03-23] MEDS: DIVALPROEX 125 MG TABLET.DR PO SCH ×3 (10:33→22:37)
[2021-03-23] MEDS: ASPIRIN EC 81 MG TABLET.DR PO SCH (10:34)
[2021-03-23] MEDS: OLANZAPINE 5 MG TABLET PO SCH (10:34)
[2021-03-23] MEDS: LAMOTRIGINE 200 MG TABLET PO SCH (10:35)
[2021-03-23] MEDS: TOPIRAMATE 100 MG TABLET PO SCH (10:35)
[2021-03-23] MEDS: MULTIVITAMINS,THERAPEUTIC TABLET PO SCH (10:35)
[2021-03-23] MEDS: diphenhydrAMINE 50 MG CAPSULE PO PRN (10:48)
[2021-03-23] MEDS: METFORMIN HCL 500 MG TABLET PO SCH (10:48)
[2021-03-23] MEDS: PHENYTOIN SODIUM EXTENDED 100 MG CAPSULE.SA PO SCH ×2 (10:50→22:36)
[2021-03-23 16:24] VITALS: BP 145/81
[2021-03-23 20:22] VITALS: BP 119/41
[2021-03-23] MEDS: TRAZODONE 50 MG TABLET PO SCH (21:00)
[2021-03-23] MEDS ORDERED: MELATONIN 3 MG TABLET PO SCH (21:00)
[2021-03-23] MEDS: TEMAZEPAM 7.5 MG CAPSULE PO PRN (22:37)
[2021-03-23] MEDS: OLANZAPINE ZYDIS 5 MG TAB.RAPDIS PO SCH (22:37)
[2021-03-23] MEDS: ATORVASTATIN 10 MG TABLET PO SCH (22:38)
[2021-03-24 08:13] VITALS: BP 127/65
[2021-03-24] MEDS: LISINOPRIL 5 MG TABLET PO SCH (09:00)
[2021-03-24] MEDS: CLOTRIMAZOLE 1% CREAM 30 GM TUBE TP SCH ×2 (10:12→17:37)
[2021-03-24] MEDS: DIVALPROEX 125 MG TABLET.DR PO SCH ×3 (10:13→22:02)
[2021-03-24] MEDS: diphenhydrAMINE 50 MG CAPSULE PO PRN (10:13)
[2021-03-24] MEDS: METFORMIN HCL 500 MG TABLET PO SCH (10:13)
[2021-03-24] MEDS: LEVOTHYROXINE SODIUM 25 MCG TABLET PO SCH (10:14)
[2021-03-24] MEDS: LAMOTRIGINE 200 MG TABLET PO SCH (10:22)
[2021-03-24] MEDS: TOPIRAMATE 100 MG TABLET PO SCH (10:23)
[2021-03-24] MEDS: PHENYTOIN SODIUM EXTENDED 100 MG CAPSULE.SA PO SCH ×2 (10:23→22:02)
[2021-03-24] MEDS: ASPIRIN EC 81 MG TABLET.DR PO SCH (10:25)
[2021-03-24] MEDS: MULTIVITAMINS,THERAPEUTIC TABLET PO SCH (10:25)
[2021-03-24] MEDS: OLANZAPINE 5 MG TABLET PO SCH (10:25)
--- NOTE | 2021-03-24 13:38 | NUR ---
SW SNF Contact MATTHEW called [facility] [address], [place] [address] ([phone]) and spoke with Karime, fieldwork coordinator, to request status of referral. Karime reports fax machine was down and requested referral to be sent to [phone]. MATTHEW faxed pt's referral packet attention to Karime for review.
[2021-03-24 16:00] VITALS: BP 150/63
--- NOTE | 2021-03-24 18:40 | NUR ---
RECD PATIENT PACING UNIT TALKING WITH delusions and confusion, after morning meds patient finally went bed and slept at short intervals, then out to halls to pace asking where is my room remainsconfused continue to monitor patient for safety
[2021-03-24 21:56] VITALS: BP 134/57
[2021-03-24] MEDS: ATORVASTATIN 10 MG TABLET PO SCH (22:02)
[2021-03-24] MEDS: OLANZAPINE ZYDIS 5 MG TAB.RAPDIS PO SCH (22:03)
[2021-03-24] MEDS: MELATONIN 3 MG TABLET PO SCH (22:04)
[2021-03-24] MEDS: TRAZODONE 50 MG TABLET PO SCH (22:07)
--- NOTE | 2021-03-25 05:25 | NUR ---
Received to care lying in bed, sleeping on and off, pleasant upon approach. Remains confused and forgetful, but behavior was directable. Compliant with bedtime medications. Slept well throughout the night. No distress noted. Will continue to monitor closely.
[2021-03-25] MEDS: LEVOTHYROXINE SODIUM 25 MCG TABLET PO SCH (06:30)
[2021-03-25 07:30] VITALS: BP 137/53
[2021-03-25 07:36] LABS: ALANINE AMINOTRANSFERASE 19 U/L (14-59); ASPARTATE AMINOTRANSFERASE 14 U/L (15-37)
[2021-03-25] MEDS: OLANZAPINE 5 MG TABLET PO SCH (08:52)
[2021-03-25] MEDS: MULTIVITAMINS,THERAPEUTIC TABLET PO SCH (08:52)
[2021-03-25] MEDS: LAMOTRIGINE 200 MG TABLET PO SCH (08:53)
[2021-03-25] MEDS: TOPIRAMATE 100 MG TABLET PO SCH (08:53)
[2021-03-25] MEDS: DIVALPROEX 125 MG TABLET.DR PO SCH ×2 (08:53→13:00)
[2021-03-25] MEDS: ASPIRIN EC 81 MG TABLET.DR PO SCH (08:53)
[2021-03-25] MEDS: METFORMIN HCL 500 MG TABLET PO SCH (08:53)
[2021-03-25] MEDS: PHENYTOIN SODIUM EXTENDED 100 MG CAPSULE.SA PO SCH ×2 (08:54→21:10)
[2021-03-25] MEDS: LISINOPRIL 5 MG TABLET PO SCH (08:54)
[2021-03-25] MEDS: CLOTRIMAZOLE 1% CREAM 30 GM TUBE TP SCH ×2 (09:18→16:54)
[2021-03-25 10:46] LABS: VALPROIC ACID 46 ug/mL (50-100)
--- NOTE | 2021-03-25 11:19 | NUR ---
GPS: PT RECEIVED ON BED ASLEEP. DURING BREAKFAST TIME, PT WOKE UP AND GIVEN MEDS AND TOLERATED WELL. SEEN PT ALONG THE HALLWAY WITH NO ANXIETY NOTED. NO ATTENTION SEEKING. WILL MONITOR PT.
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
--- NOTE | 2021-03-25 13:54 | NUR ---
MATTHEW SNF Referral SW faxed patient's referral packet to [facility] [address] [place] [address] [place] [address] ( ) attention to Rayna Andrade, admissions coordinators, for review.
--- NOTE | 2021-03-25 14:21 | NUR ---
GPS: PRINT PRESS OPERATOR TO MATTHEW. PRINT PRESS OPERATOR ELHAM OF [facility] CALLED TO INFORM SW THAT LET HER KNOW WHEN PT IS GOING TO BE DISCHARGE AND WHERE SHE IS GOING. CONTACT NO. ([id number] Addendum: 03/25/21 at 1424 by JUNIOR KOHLER RN ADDENDUM: [phone]. ELHAM IS THE ONE HANDLING HER SSI BENIFITS.
[2021-03-25 16:00] VITALS: BP 109/44
--- NOTE | 2021-03-25 16:10 | NUR ---
SW Discharge Plan Update SW received call from Rayna from [facility] [address] [facility] [place]. [place] [address] [place] [address] ([phone]) who informed pt is accepted.
--- NOTE | 2021-03-25 16:22 | NUR ---
SW Care Coordination Note SW called and left voice message for Gloria Guan, manager of case at [facility] ([phone]), requesting call back to discuss pt's discharge plan.
--- NOTE | 2021-03-25 16:26 | NUR ---
SW Care Coordination Note SW spoke with Gloria Guan, director of casework department at [facility] ([phone]) and discussed pt's discharge to [facility].
[2021-03-25 20:14] VITALS: BP 125/74
[2021-03-25] MEDS: OLANZAPINE ZYDIS 5 MG TAB.RAPDIS PO SCH (21:09)
[2021-03-25] MEDS: DIVALPROEX 500 MG TABLET.DR PO SCH (21:10)
[2021-03-25] MEDS: MELATONIN 3 MG TABLET PO SCH (21:10)
[2021-03-25] MEDS: TRAZODONE 50 MG TABLET PO SCH (21:11)
[2021-03-25] MEDS: ATORVASTATIN 10 MG TABLET PO SCH (21:13)
[2021-03-25] MEDS: TEMAZEPAM 7.5 MG CAPSULE PO PRN (22:12)
[2021-03-26] MEDS: diphenhydrAMINE 50 MG CAPSULE PO PRN ×2 (00:16→20:31)
--- NOTE | 2021-03-26 01:45 | NUR ---
Received to care, sitting near nurses station. Compliant with medications. PRN restoril given at 2212, for insomnia. As of now, she is sleeping well. no distress noted.
[2021-03-26] MEDS: LEVOTHYROXINE SODIUM 25 MCG TABLET PO SCH (06:33)
[2021-03-26 07:30] VITALS: BP 114/45
[2021-03-26] MEDS: MULTIVITAMINS,THERAPEUTIC TABLET PO SCH (08:40)
[2021-03-26] MEDS: METFORMIN HCL 500 MG TABLET PO SCH (08:40)
[2021-03-26] MEDS: TOPIRAMATE 100 MG TABLET PO SCH (08:40)
[2021-03-26] MEDS: ASPIRIN EC 81 MG TABLET.DR PO SCH (08:40)
[2021-03-26] MEDS: DIVALPROEX 500 MG TABLET.DR PO SCH ×3 (08:40→21:58)
[2021-03-26] MEDS: LAMOTRIGINE 200 MG TABLET PO SCH (08:41)
[2021-03-26] MEDS: PHENYTOIN SODIUM EXTENDED 100 MG CAPSULE.SA PO SCH ×2 (08:41→21:58)
[2021-03-26] MEDS: LISINOPRIL 5 MG TABLET PO SCH (08:42)
[2021-03-26] MEDS: CLOTRIMAZOLE 1% CREAM 30 GM TUBE TP SCH ×2 (08:43→20:00)
[2021-03-26] MEDS: OLANZAPINE 5 MG TABLET PO SCH (09:24)
--- NOTE | 2021-03-26 13:43 | NUR ---
MATTHEW Discharge Plan Update MATTHEW contacted Chayo CASTRO from [facility] [address] [facility] [place], [address] [place] [address] ([phone]) who informed the pt is confirmed for admittance on 03/27/21 via ambulance.
[2021-03-26 17:02] VITALS: BP 122/49
--- NOTE | 2021-03-26 17:04 | NUR ---
GPS: PT ALERT AND VERBALLY RESPONSIVE. PACING ON HALLWAY AND STATING "WHEN AM I GOING OUT OF HERE" PT NOW MORE REDIRECTABLE AFTER KNOWEING THAT SHE WILL BE DISCHARGE TOMORROW. ONE EPISODE OF VERBALLY ABUSIVE WHEN PT WAS ASKED TO GUADALUPE THE MEDICATION, SAYING " I DON'T WANNA TAKE THAT FUCKING MEDICATION". RE-ORIENTED PT TO BE NICE AND TO TAKE THE MEDICATION GIVEN SO NOT TO DELAY HER DISCHARGE TOMORROW. EVENTUALLY, PT TOOK THE MEDICATION.
[2021-03-26 20:15] VITALS: BP 116/48
[2021-03-26] MEDS: MELATONIN 3 MG TABLET PO SCH (21:57)
[2021-03-26] MEDS: ATORVASTATIN 10 MG TABLET PO SCH (21:57)
[2021-03-26] MEDS: TRAZODONE 50 MG TABLET PO SCH (21:58)
[2021-03-26] MEDS: OLANZAPINE ZYDIS 5 MG TAB.RAPDIS PO SCH (21:58)
[2021-03-27] MEDS: LEVOTHYROXINE SODIUM 25 MCG TABLET PO SCH (07:19)
[2021-03-27 07:30] VITALS: BP 129/46
--- NOTE | 2021-03-27 08:50 | NUR ---
[facility] Contact Per request, MATTHEW called [facility] ([phone]) and spoke with Lupe to report covid vaccination status and covid test result. MATTHEW faxed medical record to [phone] attention to Lupe.
--- NOTE | 2021-03-27 08:57 | NUR ---
MATTHEW Discharge Note Pt will be discharged to [facility] [id number] [facility] [place] [address] ([phone]) via Ambulance transportation at 11AM. MATTHEW spoke with Rayna, admin coordinator at the facility, who states they are ready to accept the patient today. Pt is aware and agreeable with discharge plans. Pt is alert and oriented x2, is unable to plan for self-care at this time; however, is willing to accept care at SNF. Pt denies any suicidal or homicidal ideation. Pt will follow-up at the facility with Dr. Psychiatrist Trinidad and Dr. Franks Terrazzo Layer Helper. Pt presents with calm mood and congruent affect.
[2021-03-27] MEDS: CLOTRIMAZOLE 1% CREAM 30 GM TUBE TP SCH ×2 (09:00→17:00)
[2021-03-27] MEDS: PHENYTOIN SODIUM EXTENDED 100 MG CAPSULE.SA PO SCH (11:02)
[2021-03-27] MEDS: METFORMIN HCL 500 MG TABLET PO SCH (11:03)
[2021-03-27] MEDS: MULTIVITAMINS,THERAPEUTIC TABLET PO SCH (11:03)
[2021-03-27] MEDS: ASPIRIN EC 81 MG TABLET.DR PO SCH (11:03)
[2021-03-27] MEDS: DIVALPROEX 500 MG TABLET.DR PO SCH ×2 (11:03→13:00)
[2021-03-27] MEDS: TOPIRAMATE 100 MG TABLET PO SCH (11:04)
[2021-03-27] MEDS: OLANZAPINE 5 MG TABLET PO SCH (11:04)
[2021-03-27] MEDS: LAMOTRIGINE 200 MG TABLET PO SCH (11:04)
[2021-03-27] MEDS: LISINOPRIL 5 MG TABLET PO SCH (11:05)
--- NOTE | 2021-03-27 16:53 | NUR ---
received patient pacing unit a little more dressed asking when am i going home ? explained to patient she woulde be picked up this pm and taken to new facility, pt5 repeating over and over when am i going home frequent re direction given to no avail. Still easily agitated and delusional about her belongings. waiting for d/c AT 1800 REPORT CALLED AT13 50 to facility [facility].
[2021-03-27 16:54] VITALS: BP 129/61
--- NOTE | 2021-03-27 18:20 | NUR ---
patient d/cd [facility] in no distress and all belongings with patient.. Pt left denying any SI OR HI .
== END 2021-03-27 18:22 | DRG 885 ==
LOC: ER 14:47 → GPS 18:00
PROVIDERS: ADMIT Psychiatry & Neurology Psychiatry; ATTEND Internal Medicine
DX: F25.9 Schizoaffective disorder, unspecified (principal); N18.9 Chronic kidney disease, unspecified; R45.851 Suicidal ideations; F03.91 Unspecified dementia, unspecified severity, with behavioral disturbance; I13.0 Hypertensive heart and chronic kidney disease with heart failure and stage 1 through stage 4 chronic kidney disease, or unspecified chronic kidney disease; I50.30 Unspecified diastolic (congestive) heart failure; F19.20 Other psychoactive substance dependence, uncomplicated; G30.9 Alzheimer's disease, unspecified; D75.89 Other specified diseases of blood and blood-forming organs; E03.9 Hypothyroidism, unspecified; E11.22 Type 2 diabetes mellitus with diabetic chronic kidney disease; E66.9 Obesity, unspecified; Z68.29 Body mass index [BMI] 29.0-29.9, adult; G40.909 Epilepsy, unspecified, not intractable, without status epilepticus; I25.2 Old myocardial infarction; I25.10 Atherosclerotic heart disease of native coronary artery without angina pectoris; J44.9 Chronic obstructive pulmonary disease, unspecified; D69.6 Thrombocytopenia, unspecified; E78.5 Hyperlipidemia, unspecified; K21.9 Gastro-esophageal reflux disease without esophagitis; Z20.822 Contact with and (suspected) exposure to COVID-19; Z79.890 Hormone replacement therapy; Z79.899 Other long term (current) drug therapy; M19.90 Unspecified osteoarthritis, unspecified site
CPT/HCPCS: 36415; 71045; 80164; 83735; 84100; 84443; 84450; 84460; 85025; 85049; 93005; 97161; A4663; G0480; Q0163